=== PATIENT | male | born 1955 | race African-American/Black ===

== ENCOUNTER 2021-08-10 19:05 | Emergency (ER) | payer OTHER ==
[~2021-08-10] VITALS: Ht 180.3 cm; Wt 97.5 kg
[~2021-08-10 19:05] MED LIST: AMLODIPINE BESY10 MG PO; FLEXERIL PO; LIPITOR10 MG PO; NORCO 5-325 TA1 EACH PO
[2021-08-10] MEDS ORDERED: NEURONTIN300 MG PO (19:14)
[2021-08-10 20:07] LABS: URINE BILIRUBIN NEGATIVE (Negative); URINE BLOOD 3+ (Negative); URINE GLUCOSE-RANDOM* NEGATIVE (Negative); URINE KETONES TRACE (Negative); URINE PROTEIN (DIPSTICK) 3+ (Negative); URINE SPECIFIC GRAVITY 1.025 (1.005-1.035)
[2021-08-10 20:10] LABS: URINE LEUKOCYTES-REFLEX 1+ (Negative); URINE NITRITE-REFLEX POSITIVE (Negative)
[2021-08-10 20:11] LABS: URINE CLARITY CLOUDY; URINE COLOR REDDISH BROWN
[2021-08-10 20:13] LABS: CASTS None Seen /LPF (None Seen); CRYSTALS None Seen /LPF (None Seen); SQUAMOUS None Seen /LPF (0-3); URINE RBC >20 Many /HPF (NONE SEEN); URINE WBC-REFLEX >25 Many /HPF (0-5)
[2021-08-10] MEDS ORDERED: CEPHALEXIN500 MG PO (20:26)
[2021-08-10 20:30] VITALS: BP 145/89
[2021-08-14] MEDS ORDERED: MACROBID 100 M100 M1 PO (10:41)
== END 2021-08-10 20:31 | disposition home or self-care (01) ==
LOC: ER 19:05
PROVIDERS: Nurse Practitioner
DX: N39.0 Urinary tract infection, site not specified (principal); R31.9 Hematuria, unspecified; I10 Essential (primary) hypertension; Z79.899 Other long term (current) drug therapy